=== PATIENT | female | born 1940 ===

== ENCOUNTER → 2019-06-10 | Outpatient (CLI) | payer OTHER ==
[~2019-06-10] MED LIST: ASPI81EC; ATOR10 PO; CARBLEV25 PO; CLON.5 PO; FLUR100; HYDACE5 PO; IBUP600 PO; METF500; NITR.4SL SL; Norco 5-325 Ta1 EACH PO; PARO20; SILSUL1TC TOP
[2019-06-10 14:13] LABS: Adenovirus F 40/41 Not Detected (NOT DETECT); Astrovirus Not Detected (NOT DETECT); Campylobacter Sp Not Detected (NOT DETECT); Cryptosporidium Not Detected (NOT DETECT); Cyclospora Cayetanensis Not Detected (NOT DETECT); E. Coli O157 Not Detected (NOT DETECT); Entamoeba Histolytica Not Detected (NOT DETECT); Enteroaggregative E. coli-EAEC Not Detected (NOT DETECT); Enteropathogenic E. coli-EPEC Not Detected (NOT DETECT); Enterotoxigenic E. coli-ETEC Not Detected (NOT DETECT); Giardia Lamblia Not Detected (NOT DETECT); Norovirus GI/GII Not Detected (NOT DETECT); Plesiomonas Shigelloides Not Detected (NOT DETECT); Rotavirus A Not Detected (NOT DETECT); Salmonella Sp Not Detected (NOT DETECT); Sapovirus Not Detected (NOT DETECT); Shiga Toxin-prod E. coli-STEC Not Detected (NOT DETECT); Shigella/Enteroin E. coli-EIEC Not Detected (NOT DETECT); Vibrio Cholerae Not Detected (NOT DETECT); Vibrio Sp Not Detected (NOT DETECT); Yersinia Enterocolitica Not Detected (NOT DETECT)
== END | disposition home or self-care (01) ==
LOC: LAB SHORT 10:00 → LAB 10:00 → LAB FUT 06-08 12:05
PROVIDERS: Registered Nurse
DX: R19.7 Diarrhea, unspecified (principal)
CPT/HCPCS: 0097U

== ENCOUNTER → 2020-01-12 | Outpatient (CLI) | payer OTHER | LOC: LAB SHORT 17:36 → LAB 17:36 | DX: Z48.02 Encounter for removal of sutures (principal); A49.02 Methicillin resistant Staphylococcus aureus infection, unspecified site | CPT/HCPCS: 87070; 87077; 87186; 87205 ==

== ENCOUNTER 2020-12-12 11:40 | Inpatient (IN) | payer OTHER ==
[~2020-12-12] VITALS: Ht 165.1 cm; Wt 68.8 kg
[~2020-12-12 11:40] MED LIST changes: -ASPI81EC; -ATOR10 PO; -CLON.5 PO; -METF500
[2020-12-12 12:39] LABS: BASOPHILS ABSOLUTE AUTO 0.02 K/mm3 (0.00-0.23); BASOPHILS PERCENT AUTO 0 % (0-2); EOSINOPHILS ABSOLUTE AUTO 0.01 K/mm3 (0.00-0.68); EOSINOPHILS PERCENT AUTO 0 % (0-6); Hematocrit 40.8 % (33.0-51.0); Hemoglobin 14.2 g/dL (11.5-16.0); IMMATURE GRAN ABSOLUTE AUTO 0.06 K/mm3 (0.00-0.10); IMMATURE GRAN PERCENT AUTO 1 % (0-1); LYMPHOCYTES ABSOLUTE AUTO 1.06 K/mm3 (0.84-5.20); LYMPHOCYTES PERCENT AUTO 8 % (21-46); MONOCYTES ABSOLUTE AUTO 0.92 K/mm3 (0.16-1.47); MONOCYTES PERCENT AUTO 7 % (4-13); Mean Corpuscular HGB 27.8 pg (26.0-34.0); Mean Corpuscular HGB Conc 34.8 g/dL (31.5-36.5); Mean Corpuscular Volume 80 fL (80-100); Mean Platelet Volume 9.6 fL (9.1-12.4); NEUTROPHILS ABSOLUTE AUTO 10.48 K/mm3 (1.96-9.15); NEUTROPHILS PERCENT AUTO 84 % (41-73); Platelet Count 345 K/mm3 (150-400); RDW Coefficient Variation 12.1 % (11.7-14.2); Red Blood Cell Count 5.11 M/mm3 (3.80-5.20); White Blood Cell Count 12.55 K/mm3 (4.00-11.30)
[2020-12-12 13:02] LABS: Albumin, Blood 3.9 g/dL (3.4-5.0); Albumin/Globulin Ratio 1.3 (0.8-1.8); Bilirubin, Total 0.6 mg/dL (0.1-1.0); Bun/Creatinine Ratio 26.3 (12.0-20.0); Calcium, Blood 9.5 mg/dL (8.5-10.1); Creatinine, Blood 1.14 mg/dL (0.40-1.00); Potassium, Blood 4.4 mmol/L (3.5-5.5); Total Protein, Blood 6.9 g/dL (6.4-8.2)
[2020-12-12 16:19] LABS: Source, Urine Clean Catch
[2020-12-12 16:22] LABS: Appearance, Urine Clear (Clear); Bilirubin, Urine Neg (Neg); Blood, Urine Neg (Neg); Color, Urine Yellow (P-Yellow); Glucose Qualitative, Urine Neg (Neg); Ketones, Urine Neg (Neg); Leukocyte Esterase, Urine 1+ (Neg); Nitrite, Urine Neg (Neg); Protein, Urine 1+ (Neg); Specific Gravity, Urine 1.015 (1.003-1.022); Urobilinogen, Urine NORM (Normal)
[2020-12-12 16:33] LABS: Bacteria Few /hpf; Red Blood Cells, Urine Not Seen /hpf (0-2); Squamous Epithelial Cells Few /hpf (Few)
[2020-12-12 16:34] LABS: Transitional Epithelial Cells Rare /hpf (0-Rare)
[2020-12-12] MEDS ORDERED: CLON1 PO (16:54)
[2020-12-12] MEDS ORDERED: GLIP2.5ER PO (16:55)
[2020-12-12] MEDS ORDERED: METF500 PO (16:55)
[2020-12-12] MEDS ORDERED: NICODERM CQ1 EAC1 TD (16:56)
[2020-12-12] MEDS ORDERED: PAXIL PO (16:56)
[2020-12-12] MEDS ORDERED: ATOR20 PO (16:57)
[2020-12-12] MEDS ORDERED: LISINOPRIL-HCT1 EAC1 PO (16:57)
[2020-12-12] MEDS ORDERED: SYMBICORT 16010.2 GM INH (16:58)
[2020-12-12] MEDS ORDERED: Aspir 8181 MG PO (17:27)
--- NOTE | 2020-12-12 19:55 | NUR ---
PT ADMITTED TO FLOOR VIA GURNEY FROM ER. PT IS ALERT AND ORIENTED X3. PT REPORTS RECENT HISTORY OF DIZZINESS AND FALLS. PT SBA FROM RNEY TO PCU BED. PT DENIES ANY PAIN, HEADACHE, OR SOB. NORMAL SALINE IV INFUSING AT 75 CC/HOUR PER ORDER. PT HERE FOR HYPONATREMIA. PT HAS AN ATTENDS ON - REPORTS INCONTINENCE. PT HAS 2 DIME SIZE SCABS TO RIGHT LE - REPORTS FROM HER 2 DOGS AT HOME. PT REPORTS SHE LIVES ALONE. PT CURRENTLY HAS A NICOTINE PATCH IN PLACE, AND SHE REPORTS PLANS TO QUIT SMOKING. FLUIDS AT BEDSIDE. CALL LIGHT WITHIN REACH. BED IN LOW POSITION, WITH BED ALARM ON. ORIENTED TO CALL LIGHT. PT IS PLEASANT AND COOPERATIVE WITH CARE.
--- NOTE | 2020-12-12 22:56 | NUR ---
PAS PLACED ON TO BLE. PT REFUSED HER LOVENOX EARLIER. PT REPORTS SHE TAKES ASA AT HOME.
[2020-12-13 04:22] LABS: Hematocrit 39.8 % (33.0-51.0); Hemoglobin 13.8 g/dL (11.5-16.0); Mean Corpuscular HGB 27.6 pg (26.0-34.0); Mean Corpuscular HGB Conc 34.7 g/dL (31.5-36.5); Mean Corpuscular Volume 80 fL (80-100); Mean Platelet Volume 9.5 fL (9.1-12.4); Platelet Count 332 K/mm3 (150-400); RDW Coefficient Variation 12.1 % (11.7-14.2); White Blood Cell Count 12.24 K/mm3 (4.00-11.30)
[2020-12-13 04:51] LABS: Alanine Aminotransfer (ALT/SGP 23 U/L (12-78); Albumin, Blood 3.5 g/dL (3.4-5.0); Albumin/Globulin Ratio 1.1 (0.8-1.8); Alk Phos 69 U/L (50-136); Anion Gap 9 mmol/L (6-16); Aspartate Aminotrans (AST/SGOT 19 U/L (12-37); Bilirubin, Total 0.6 mg/dL (0.1-1.0); Blood Urea Nitrogen 30 mg/dL (8-24); Bun/Creatinine Ratio 38.2 (12.0-20.0); CO2, Blood 27 mmol/L (21-32); Chloride, Blood 87 mmol/L (98-108); Creatinine, Blood 0.79 mg/dL (0.40-1.00); Globulin, Blood 3.2 g/dL (2.2-4.0); Glomerular Filtration Rate >60 (60-); Glucose, Blood 210 mg/dL (70-99); Potassium, Blood 4.7 mmol/L (3.5-5.5); Sodium, Blood 123 mmol/L (136-145); Total Protein, Blood 6.7 g/dL (6.4-8.2)
--- NOTE | 2020-12-13 06:20 | NUR ---
NO ACUTE CHANGES THROUGHOUT THE NIGHT. PT'S SODIUM LEVEL IS CURRENTLY 123 WITH AM LABS, DOWN FROM 124 WITH LAST SODIUM LAB DRAW AT APPX 2200 LAST NOC. PT SLEPT FOR APPX 4 HOURS DURING THE NIGHT. PAS CURRENTLY OFF PER PT REQUEST. FLUIDS AT BEDSIDE. CALL LIGHT IN REACH. BED IN LOW POSITION. BED ALARM ON FOR SAFETY.
--- NOTE | 2020-12-13 18:34 | NUR ---
PT SUMMARY: NO ACUTE EVENTS FOR THE SHIFT. STATUS CHANGED TO MEDICAL WITH NO TELE. PT STATED SHE IS FEELING A LOT BETTER WOULD LIKE TO GO HOME TOMORROW IF STABLE. NS RESUMED AT 100MLS/HR, PT CONTINUES ON 1L FLUID RESTRICTION. DENIES CNY CHEST PAIN/PRESSURE. VITALS HAS BEEN STABLE. USES WALKER TO AMBULATE IN THE BATHROOM, FULLY CONTINENT OF BOTH BOWEL AND BLADDER. PLEASANT AND COOPERATIVE, CALLS APPROPRIATELY. LABS ORDERED IN AM. PT NOW RESTING IN BED CALL LIGHTS IN REACH WILL MONITOR UNTIL END OF SHIFT.
[2020-12-14 04:09] LABS: BASOPHILS ABSOLUTE AUTO 0.04 K/mm3 (0.00-0.23); BASOPHILS PERCENT AUTO 0 % (0-2); EOSINOPHILS ABSOLUTE AUTO 0.02 K/mm3 (0.00-0.68); EOSINOPHILS PERCENT AUTO 0 % (0-6); Hematocrit 39.5 % (33.0-51.0); Hemoglobin 13.3 g/dL (11.5-16.0); IMMATURE GRAN ABSOLUTE AUTO 0.08 K/mm3 (0.00-0.10); IMMATURE GRAN PERCENT AUTO 1 % (0-1); LYMPHOCYTES ABSOLUTE AUTO 2.98 K/mm3 (0.84-5.20); LYMPHOCYTES PERCENT AUTO 21 % (21-46); MONOCYTES ABSOLUTE AUTO 1.31 K/mm3 (0.16-1.47); MONOCYTES PERCENT AUTO 9 % (4-13); Mean Corpuscular HGB 27.7 pg (26.0-34.0); Mean Corpuscular HGB Conc 33.7 g/dL (31.5-36.5); Mean Corpuscular Volume 82 fL (80-100); Mean Platelet Volume 9.4 fL (9.1-12.4); NEUTROPHILS ABSOLUTE AUTO 10.14 K/mm3 (1.96-9.15); NEUTROPHILS PERCENT AUTO 70 % (41-73); Platelet Count 301 K/mm3 (150-400); RDW Coefficient Variation 12.4 % (11.7-14.2); RDW Standard Deviation 37.3 fL (35.1-46.3); White Blood Cell Count 14.57 K/mm3 (4.00-11.30)
[2020-12-14 04:23] LABS: Albumin, Blood 3.2 g/dL (3.4-5.0); Anion Gap 6 mmol/L (6-16); Blood Urea Nitrogen 30 mg/dL (8-24); Bun/Creatinine Ratio 32.1 (12.0-20.0); CO2, Blood 30 mmol/L (21-32); Calcium, Blood 8.7 mg/dL (8.5-10.1); Chloride, Blood 96 mmol/L (98-108); Creatinine, Blood 0.94 mg/dL (0.40-1.00); Glomerular Filtration Rate >60 (60-); Glucose, Blood 112 mg/dL (70-99); Phosphorus, Blood 2.6 mg/dL (2.5-4.9); Potassium, Blood 4.6 mmol/L (3.5-5.5); Sodium, Blood 132 mmol/L (136-145)
--- NOTE | 2020-12-14 05:33 | NUR ---
SHIFT SUMMARY PT ALERT AND ORIENTED X 4. BED ALARM IN PLACE D/T RECENT FALL AT HOME. PT SLEPT T/O SHIFT. CALLS APPROPRIATELY. HR STABLE. BP HYERTENSIVE AT TIMES, MEDICATION GIVEN PRN. SEE EMAR. OXYGEN SATURATION MAINTAINED ABOVE 92% ON RA. PT REPORTS NO CP OR PRESSURE. PT ABLE TO TURN SELF IN BED NEEDED. WILL CONTINUE TO MONITOR UNTIL REPORT GIVEN TO DAYSHIFT RN.
--- NOTE | 2020-12-14 07:27 | NUR ---
(late entry) Spiritual care visit conducted on 12/13/2020. Patient is lying in bed and alert. Patient's son is bedside. Patient tells me about her medical history, her current issues and the plan of care moving forward. She talks about her family and the strong advocate her son is for her. Patient then shares about her [employer] maurilio and her membership at [facility] that is located downtown [place]. Patient also shares about the caring support she receives from the latter-day and her concerns about her health and tears up as she does so. I provide therapeutic listening, pastoral program counselor and prayer. Patient and son respond well and show signs of being comforted and having an elevated mood. I will continue to remain available as I assist patient with the emotional/spiritual aspects of having increasing physical limitations.
[2020-12-14] MEDS ORDERED: ALBU90OI INH (10:24)
[2020-12-14] MEDS ORDERED: ACET325 PO (10:24)
[2020-12-14] MEDS ORDERED: HYDR10 PO (10:25)
[2020-12-14] MEDS ORDERED: LEVFLO500 PO (10:26)
[2020-12-14] MEDS ORDERED: VISBIOME 112.51 EACH PO (10:27)
--- NOTE | 2020-12-14 10:31 | NUR ---
Assisted to bathroom to void. Attends were already saturated with urine. She appears to have urgency. Voided, unmeasured as she missed the hat in the toilet. Washed hands, and ambulated with walker back to her bed.
--- NOTE | 2020-12-14 10:39 | NUR ---
PT TO DISCHARGE HOME . IV REMOVED, NO SS OF INFECTION NOTED. PT WAS DRESSED BY STAFF. NURSE WENT OVER DISCHARGE INSTURCTIONS WITH PT. MEDS DISCUSSED AND EDUCATION REGARDING TAKING OWN BP AND MEDICATION APPLICATIONS WERE DISCUSSED. PT TO BE TAKEN HOME BY SON. TAKEN DOWN IN WC. PT TO FOLLOW UP WITH PCP.
== END 2020-12-14 11:12 | disposition home or self-care (01) | DRG 641 ==
LOC: ER 11:40 → PCU 19:05
PROVIDERS: Emergency Medicine; Family Medicine; Nurse Practitioner Acute Care; ADMIT Hospitalist
DX: E87.1 Hypo-osmolality and hyponatremia (principal); Z79.82 Long term (current) use of aspirin; E11.9 Type 2 diabetes mellitus without complications; Z79.84 Long term (current) use of oral hypoglycemic drugs; F17.210 Nicotine dependence, cigarettes, uncomplicated; I10 Essential (primary) hypertension; E78.5 Hyperlipidemia, unspecified; J44.9 Chronic obstructive pulmonary disease, unspecified; G25.81 Restless legs syndrome; I25.10 Atherosclerotic heart disease of native coronary artery without angina pectoris; Z95.1 Presence of aortocoronary bypass graft; I27.20 Pulmonary hypertension, unspecified; F41.9 Anxiety disorder, unspecified; E66.9 Obesity, unspecified; Z68.24 Body mass index [BMI] 24.0-24.9, adult
CPT/HCPCS: 36415; 70450; 71046; 80053; 80069; 81001; 82533; 82947; 83735; 83930; 83935; 84295; 84300; 84443; 84550; 85025; 85027; 87086; 93005; 93010; 94640; 94760; 96360; 96361; 99285-25; A9270; J3475; J7030

== ENCOUNTER 2022-01-10 12:30 | Emergency (ER) | payer OTHER ==
[~2022-01-10] VITALS: Ht 165.1 cm; Wt 65.3 kg
[~2022-01-10 12:30] MED LIST changes: +ACET325 PO; +ALBU90OI INH; +ATOR20 PO; +Aspir 8181 MG PO; +CLON1 PO; +GLIP2.5ER PO; +HYDR10 PO; +LEVFLO500 PO; +LISINOPRIL-HCT1 EAC1 PO; +METF500 PO; +NICODERM CQ1 EAC1 TD; +PAXIL PO; +SYMBICORT 16010.2 GM INH; +VISBIOME 112.51 EACH PO
[2022-01-10 13:36] LABS: BASOPHILS ABSOLUTE AUTO 0.07 K/mm3 (0.00-0.23); BASOPHILS PERCENT AUTO 1 % (0-2); EOSINOPHILS ABSOLUTE AUTO 0.25 K/mm3 (0.00-0.68); EOSINOPHILS PERCENT AUTO 3 % (0-6); Hematocrit 49.2 % (33.0-51.0); Hemoglobin 15.9 g/dL (11.5-16.0); IMMATURE GRAN ABSOLUTE AUTO 0.05 K/mm3 (0.00-0.10); IMMATURE GRAN PERCENT AUTO 1 % (0-1); LYMPHOCYTES ABSOLUTE AUTO 2.57 K/mm3 (0.84-5.20); LYMPHOCYTES PERCENT AUTO 28 % (21-46); MONOCYTES ABSOLUTE AUTO 0.59 K/mm3 (0.16-1.47); MONOCYTES PERCENT AUTO 6 % (4-13); Mean Corpuscular HGB 27.8 pg (26.0-34.0); Mean Corpuscular HGB Conc 32.3 g/dL (31.5-36.5); Mean Corpuscular Volume 86 fL (80-100); NEUTROPHILS ABSOLUTE AUTO 5.71 K/mm3 (1.96-9.15); NEUTROPHILS PERCENT AUTO 62 % (41-73); Platelet Count 383 K/mm3 (150-400); Red Blood Cell Count 5.72 M/mm3 (3.80-5.20); White Blood Cell Count 9.24 K/mm3 (4.00-11.30)
[2022-01-10 13:51] LABS: Alanine Aminotransfer (ALT/SGP 15 U/L (12-78); Albumin, Blood 3.4 g/dL (3.4-5.0); Albumin/Globulin Ratio 0.8 (0.8-1.8); Alk Phos 86 U/L (50-136); Anion Gap 5 mmol/L (6-16); Aspartate Aminotrans (AST/SGOT 39 U/L (12-37); Bilirubin, Total 0.6 mg/dL (0.1-1.0); Blood Urea Nitrogen 10 mg/dL (8-24); Bun/Creatinine Ratio 13.9 (12.0-20.0); CO2, Blood 31 mmol/L (21-32); Calcium, Blood 9.3 mg/dL (8.5-10.1); Chloride, Blood 98 mmol/L (98-108); Creatinine, Blood 0.72 mg/dL (0.40-1.00); Globulin, Blood 4.3 g/dL (2.2-4.0); Glomerular Filtration Rate >60 (60-); Glucose, Blood 195 mg/dL (70-99); Potassium, Blood 5.6 mmol/L (3.5-5.5); Sodium, Blood 134 mmol/L (136-145); Total Protein, Blood 7.7 g/dL (6.4-8.2)
== END 2022-01-10 16:24 | disposition home or self-care (01) ==
LOC: ER 12:30
PROVIDERS: Physician Assistant
DX: R91.8 Other nonspecific abnormal finding of lung field (principal); E11.9 Type 2 diabetes mellitus without complications; J44.9 Chronic obstructive pulmonary disease, unspecified; I25.10 Atherosclerotic heart disease of native coronary artery without angina pectoris; I10 Essential (primary) hypertension; F17.210 Nicotine dependence, cigarettes, uncomplicated; Z79.82 Long term (current) use of aspirin; Z79.84 Long term (current) use of oral hypoglycemic drugs; Z79.899 Other long term (current) drug therapy; Z88.0 Allergy status to penicillin
CPT/HCPCS: 36415; 71045; 71260; 80053; 83880; 84484; 85025; 93005; 93010; 99285-25; Q9967

== ENCOUNTER 2022-01-28 17:30 | Emergency (ER) | payer OTHER ==
[~2022-01-28] VITALS: Ht 170.2 cm; Wt 77.1 kg
[2022-01-28 18:12] LABS: BASOPHILS ABSOLUTE AUTO 0.06 K/mm3 (0.00-0.23); BASOPHILS PERCENT AUTO 1 % (0-2); EOSINOPHILS ABSOLUTE AUTO 0.21 K/mm3 (0.00-0.68); EOSINOPHILS PERCENT AUTO 2 % (0-6); Hematocrit 43.5 % (33.0-51.0); Hemoglobin 14.1 g/dL (11.5-16.0); IMMATURE GRAN ABSOLUTE AUTO 0.04 K/mm3 (0.00-0.10); IMMATURE GRAN PERCENT AUTO 0 % (0-1); LYMPHOCYTES ABSOLUTE AUTO 2.13 K/mm3 (0.84-5.20); LYMPHOCYTES PERCENT AUTO 21 % (21-46); MONOCYTES ABSOLUTE AUTO 0.75 K/mm3 (0.16-1.47); MONOCYTES PERCENT AUTO 7 % (4-13); Mean Corpuscular HGB 27.4 pg (26.0-34.0); Mean Corpuscular HGB Conc 32.4 g/dL (31.5-36.5); Mean Corpuscular Volume 85 fL (80-100); Mean Platelet Volume 9.9 fL (9.1-12.4); NEUTROPHILS ABSOLUTE AUTO 6.97 K/mm3 (1.96-9.15); NEUTROPHILS PERCENT AUTO 69 % (41-73); Platelet Count 227 K/mm3 (150-400); RDW Coefficient Variation 12.8 % (11.7-14.2); RDW Standard Deviation 38.9 fL (35.1-46.3); Red Blood Cell Count 5.14 M/mm3 (3.80-5.20); White Blood Cell Count 10.16 K/mm3 (4.00-11.30)
[2022-01-28] MEDS ORDERED: ESCI10 PO (18:48)
[2022-01-28 19:35] LABS: Anion Gap 5 mmol/L (6-16); Blood Urea Nitrogen 14 mg/dL (8-24); Bun/Creatinine Ratio 16.9 (12.0-20.0); CO2, Blood 29 mmol/L (21-32); Calcium, Blood 9.3 mg/dL (8.5-10.1); Chloride, Blood 103 mmol/L (98-108); Creatinine, Blood 0.83 mg/dL (0.40-1.00); Glomerular Filtration Rate >60 (60-); Glucose, Blood 157 mg/dL (70-99); Potassium, Blood 3.8 mmol/L (3.5-5.5); Sodium, Blood 137 mmol/L (136-145)
== END 2022-01-28 20:24 | disposition home or self-care (01) ==
LOC: ER 17:30
PROVIDERS: Emergency Medicine
DX: M79.602 Pain in left arm (principal); R47.81 Slurred speech; Z88.0 Allergy status to penicillin; I10 Essential (primary) hypertension; E11.9 Type 2 diabetes mellitus without complications; J44.9 Chronic obstructive pulmonary disease, unspecified; Z79.899 Other long term (current) drug therapy; F17.210 Nicotine dependence, cigarettes, uncomplicated
CPT/HCPCS: 70450; 80048; 85025; 93005; 93010; 99285-25

== ENCOUNTER 2022-02-27 14:13 | Emergency (ER) | payer OTHER ==
[~2022-02-27] VITALS: Ht 165.1 cm; Wt 61.2 kg
[~2022-02-27 14:13] MED LIST changes: +ESCI10 PO
== END 2022-02-27 17:15 | disposition home or self-care (01) ==
LOC: ER 14:13
DX: S52.222A Displaced transverse fracture of shaft of left ulna, initial encounter for closed fracture (principal); I10 Essential (primary) hypertension; E11.9 Type 2 diabetes mellitus without complications; F17.210 Nicotine dependence, cigarettes, uncomplicated; W01.0XXA Fall on same level from slipping, tripping and stumbling without subsequent striking against object, initial encounter
CPT/HCPCS: 29125; 73110; 99283-25

== ENCOUNTER → 2022-12-27 | Outpatient (CLI) | payer OTHER ==
[2022-12-27 14:14] LABS: Creatinine, Urine Random 46.6 mg/dL (27.00-270.00)
[2022-12-27 15:29] LABS: Albumin/Globulin Ratio 0.9 (0.8-1.8); Bilirubin, Total 0.3 mg/dL (0.1-1.0); Bun/Creatinine Ratio 18.2 (12.0-20.0); Calcium, Blood 8.8 mg/dL (8.5-10.1); Creatinine, Blood 0.88 mg/dL (0.40-1.00); Globulin, Blood 3.2 g/dL (2.2-4.0); Potassium, Blood 4.3 mmol/L (3.5-5.5); Total Protein, Blood 6.2 g/dL (6.4-8.2)
[2022-12-27 16:03] LABS: Microalb/Creat Ratio UR, Rand 1066.52 mg/g (0.000-30.000)
== END ==
LOC: LAB 12:15 → LAB SHORT 12:15
PROVIDERS: Physician Assistant
DX: E11.9 Type 2 diabetes mellitus without complications (principal); I10 Essential (primary) hypertension
CPT/HCPCS: 36415; 80053; 82043; 82570; 83036

== ENCOUNTER 2023-11-17 12:36 | Emergency (ER) | payer OTHER ==
[~2023-11-17] VITALS: Ht 165.1 cm; Wt 59.9 kg
[2023-11-17 16:01] LABS: Influenza B, PCR NEGATIVE (NEGATIVE); Resp Syncytial Virus, PCR NEGATIVE (NEGATIVE); SARS-Cov-2 (COVID-19) PCR, MMC NEGATIVE (NEGATIVE)
[2023-11-17 16:20] LABS: Influenza A, PCR POSITIVE (NEGATIVE)
[2023-11-17] MEDS ORDERED: BENZ100A PO (17:32)
[2023-11-17] MEDS ORDERED: Tamiflu75 MG PO (17:32)
[2023-11-17 17:45] VITALS: BP 136/46
== END 2023-11-17 17:58 | disposition home or self-care (01) ==
LOC: ER 12:36
PROVIDERS: Emergency Medicine
DX: J10.1 Influenza due to other identified influenza virus with other respiratory manifestations (principal); Z95.1 Presence of aortocoronary bypass graft; Z88.0 Allergy status to penicillin; Z79.84 Long term (current) use of oral hypoglycemic drugs; Z79.82 Long term (current) use of aspirin; Z79.899 Other long term (current) drug therapy; F17.210 Nicotine dependence, cigarettes, uncomplicated; I10 Essential (primary) hypertension; E11.9 Type 2 diabetes mellitus without complications; I25.10 Atherosclerotic heart disease of native coronary artery without angina pectoris; J44.9 Chronic obstructive pulmonary disease, unspecified
CPT/HCPCS: 0241U; 71046; 94640; 94664; 99284-25; A9270

== ENCOUNTER 2024-11-14 09:42 | Emergency (ER) | payer OTHER ==
[~2024-11-14] VITALS: Ht 160 cm; Wt 68.0 kg
[~2024-11-14 09:42] MED LIST changes: +BENZ100A PO; +Tamiflu75 MG PO
[2024-11-14 10:21] VITALS: BP 153/60
[2024-11-14] MEDS ORDERED: ROPI1 PO (11:02)
== END 2024-11-14 11:06 | disposition home or self-care (01) ==
LOC: ER 09:42
DX: S40.021A Contusion of right upper arm, initial encounter (principal); M25.511 Pain in right shoulder; G25.81 Restless legs syndrome; I10 Essential (primary) hypertension; E11.9 Type 2 diabetes mellitus without complications; I25.10 Atherosclerotic heart disease of native coronary artery without angina pectoris; J44.9 Chronic obstructive pulmonary disease, unspecified; F17.210 Nicotine dependence, cigarettes, uncomplicated; Z95.1 Presence of aortocoronary bypass graft; Z88.0 Allergy status to penicillin; Z79.84 Long term (current) use of oral hypoglycemic drugs; Z79.82 Long term (current) use of aspirin; Z79.51 Long term (current) use of inhaled steroids; Z79.899 Other long term (current) drug therapy; Z59.89 Other problems related to housing and economic circumstances; X58.XXXA Exposure to other specified factors, initial encounter
CPT/HCPCS: 99283

== ENCOUNTER → 2025-02-03 | Outpatient (CLI) | payer OTHER ==
[~2025-02-03] MED LIST changes: +ROPI1 PO
== END ==
LOC: LAB 08:16 → LAB SHORT 08:16
DX: L57.0 Actinic keratosis (principal)
CPT/HCPCS: 88305